=== PATIENT | female | born 1940 | race Caucasian/White ===

== ENCOUNTER → 2017-08-19 09:08 | Outpatient (CLI) | payer MEDICARE, SELFPAY ==
--- NOTE | 2017-08-19 09:14 | US_ITS ---
STUDY: ULTRASOUND BREAST - LEFT REASON FOR EXAM: Female, 77 years old. Pain in the left breast. TECHNIQUE: Axial and longitudinal images of the LEFT breast were performed with a high resolution ultrasound transducer. COMPARISON: Comparison is made with prior mammogram done earlier today. FINDINGS: LEFT Breast: There is a 4 mm x 6 mm x 4 mm cyst at the 3:00 position in the breast at 6 cm from the nipple. US/Breast Limited Unilateral IMPRESSION: 4 mm x 6 mm x 4 mm cyst at the 3:00 position of the breast at 6 cm from the nipple. ASSESSMENT CATEGORY: BIRADS Category 2: Benign. A letter regarding these results will be sent to the patient by the facility within 30 days. Electronically Signed: Boy Barone MD at 11:07 EST Tel [phone], Service support ,
--- NOTE | 2017-08-19 09:14 | HPBI_ITS ---
MAMMOGRAPHY - UNILATERAL DIAGNOSTIC: LEFT BREAST REASON FOR EXAM: Female, 77 years old. Left breast tenderness. PERTINENT HISTORY: Non-contributory. TECHNIQUE: Digital unilateral breast aron (3D mammographic acquisition) in the CC and MLO projections. 2-D mediolateral oblique (MLO) and craniocaudad (CC) views of both breasts were obtained. CAD: Full Field Digital Mammography with Computer Added Detection was performed. COMPARISON: Comparison is made with prior examination dated February 04, 2017 and February 04, 2016. FINDINGS: Breast Composition: There are scattered areas of fibroglandular density. There are no dominant masses or suspicious calcifications. Stable well-defined 5 mm nodule in the mid slightly lateral aspect of the left breast. No other significant abnormalities are identified. There has been no significant change since the prior study. HPBI/DIAG MAMM W/CAD, UNILAT IMPRESSION: Stable unilateral diagnostic mammogram. With the patient's history of left breast tenderness, correlation with ultrasound is recommended. ASSESSMENT CATEGORY: BIRADS Category 0: Incomplete. Need additional imaging evaluation. A letter regarding these results will be sent to the patient by the facility within 30 days. Approximately 10% of breast cancers are not detected by mammography. A normal mammogram should not delay biopsy of a clinically suspicious abnormality. Electronically Signed: Boy Barone MD at 11:11 EST Tel [phone], Service support ,
== END ==
PROVIDERS: Family Provider Internal Medicine; PCP Internal Medicine; Visit Provider Internal Medicine
DX: N64.4 Mastodynia (principal)
CPT/HCPCS: 76642; 77061; 77065; G0279

== ENCOUNTER → 2017-10-14 13:12 | Outpatient (CLI) | payer MEDICARE, SELFPAY ==
--- NOTE | 2017-10-14 13:15 | CT_ITS ---
STUDY: CT BRAIN WITH AND WITHOUT CONTRAST REASON FOR EXAM: Female, 77 years old. Headaches. RADIATION DOSAGE (If Supplied By Facility): CTDIvol = ( 60.81 ) mGy, DLP = ( 1989.96 ) mGycm TECHNIQUE: Transaxial CT imaging of the brain was performed pre and post contrast administration. The examination was performed with intravenous administration of 50ml ml of Isovue 370 contrast material. Individualized dose optimization techniques were used for this CT. COMPARISON: None. FINDINGS: Normal soft tissue structures. Normal calvarium. There is mild cerebral atrophy with widening of the extra-axial spaces and ventricular dilatation. There are areas of decreased attenuation within the white matter tracts of the supratentorial brain, consistent with microvascular disease changes. Normal basal ganglia and thalami. Normal brainstem. Normal cerebellum. There is no intracranial hemorrhage. There are no findings of an acute ischemic infarction. Normal visualized paranasal sinuses. CT/Brain/Head W/WO Contrast IMPRESSION: Mild atrophy and White matter disease. No acute abnormality. Electronically Signed: Cruz Peacock MD at 19:35 EDT , Service support ,
[2017-10-14 13:46] LABS: CREATININE FINGERSTICK 0.7 mg/dL (0.55-1.02); EGFR FINGERSTICK > 60.0000 mL/min (>60)
== END ==
LOC: CT 13:12
PROVIDERS: Family Provider Internal Medicine; PCP Internal Medicine; Visit Provider Internal Medicine
DX: R51 Headache (principal)
CPT/HCPCS: 70470; Q9967

== ENCOUNTER → 2018-02-07 09:32 | Outpatient (CLI) | payer MEDICARE, SELFPAY | PROVIDERS: Family Provider Internal Medicine; PCP Internal Medicine; Visit Provider Internal Medicine | DX: Z12.31 Encounter for screening mammogram for malignant neoplasm of breast (principal) | CPT/HCPCS: 77063; 77067 ==

== ENCOUNTER → 2018-08-23 10:07 | Outpatient (CLI) | payer MEDICARE, SELFPAY ==
[2018-01-28 10:56] VITALS: BMI 35.8
--- NOTE | 2018-08-23 10:11 | RAD_ITS ---
STUDY: X-RAY CHEST REASON FOR EXAM: Female, 78 years old. Cough TECHNIQUE: Frontal and lateral views of the chest COMPARISON: 12/04/2014. FINDINGS: The lungs are clear. There are no pleural effusions. There is no pneumothorax. The heart is normal in size. The visualized osseous structures are within normal limits. RAD/Chest PA and Lateral IMPRESSION: Clear lungs. Electronically Signed: Vic Charles, at 21:36 EST Tel , Service support ,
== END ==
LOC: MTRAD 10:09
PROVIDERS: Family Provider Internal Medicine; PCP Internal Medicine; Referring Provider Internal Medicine; Visit Provider Internal Medicine
DX: R05 Cough (principal)
CPT/HCPCS: 71046

== ENCOUNTER → 2019-02-09 09:12 | Outpatient (CLI) | payer MEDICARE, SELFPAY ==
--- NOTE | 2019-02-09 09:15 | BI_ITS ---
MAMMOGRAPHY - BILATERAL SCREENING 3-D TOMOSYNTHESIS REASON FOR EXAM: Female, 78 years old. Bilateral Screening 3-D tomosynthesis PERTINENT HISTORY: No significant family history. TECHNIQUE: 2-D mammograms and 3-D Tomosynthesis of the breast (s) were performed. CAD was performed. COMPARISON: 02/07/2018, 08/19/17, 02/04/2017 FINDINGS: The breast composition is composed of scattered fibroglandular density. Scattered benign calcifications are seen. No dense spiculated masses or suspicious microcalcifications are identified. No architectural distortion is identified. There is no skin thickening or retraction. There has been no significant change since the prior study. BI/SCREEN MAMM (CAD) W/DREW BILAT IMPRESSION: No mammographic signs of malignancy. Routine yearly mammograms recommended. ASSESSMENT CATEGORY: BIRADS Category 2: Benign. A letter regarding these results will be sent to the patient by the facility within 30 days. FOLLOW UP RECOMMENDATION: Yearly follow up mammogram recommended. (A) Approximately 10% of breast cancers are not detected by mammography. A normal mammogram should not delay biopsy of a clinically suspicious abnormality. Electronically Signed: Rafael Ryder MD at 15:46 EDT Tel [phone], Service support ,
--- NOTE | 2019-02-09 09:17 | BD_ITS ---
STUDY: DUAL ENERGY X-RAY ABSORPTIOMETRY / DXA REASON FOR EXAM: Female, 78 years old. Early menopause. Loss of height. TECHNIQUE: Bone Mineral Density (BMD) measurements of lumbar spine and bilateral hips were obtained. COMPARISON: Comparison is made with prior study dated February 04, 2017. FINDINGS: Lumbar Spine (L1-L4): g/cm2 (1.145) / T-score (-0.5) / Z-score (1.4) Findings are suggestive of normal bone density with a low fracture risk. Left Femur Total: g/cm2 (0.964) / T-score (-0.3) / Z-score (1.7) Left Femoral Neck: g/cm2 (0.929) / T-score (-0.8) / Z-score (1.4) Right Femur Total: g/cm2 (0.989) / T-score (-0.1) / Z-score (1.9) Right Femoral Neck: g/cm2 (0.847) / T-score (-1.4) / Z-score (0.8) The T-Scores on the most recent prior examination were: Lumbar Spine (L1-L4): There has been improvement of bone density since the previous examination. Left Femur Total: which represents a worsening of 2%. Right Femur Total: which represents an improvement of 1.9%. BD/Dexa Bone Density Study IMPRESSION: The patient is considered osteopenic as outlined below according to World Na[employer] Organization (WHO) criteria with a low fracture risk. There has been worsening of bone density since the previous examination. Reference Information: The T-score is the number of standard deviations above or below the standard which is normal for young adults at their peak bone mineral density. The World Health Organization (WHO) interprets the T-scores as follows: Above -1 Normal bone density Between -1 and -2.5 Osteopenia Equal to / or below -2.5 Osteoporosis As a practical clinical guideline, osteopenia may be graded as follows: Mild -1 through -1.5 Moderate -1.6 through -2.0 Severe -2.1 through -2.4 The Z-score is the number of standard deviations above or below age-matched controls. A Z-score of less than -1.5 would be considered abnormal. References: 1. NIH Osteoporosis and Related Bone Diseases http://www.osteo.org 2. International Society for Clinical Densitometry http://www.iscd.org 3. National Osteoporosis Foundation http://www.nof.org Electronically Signed: Boy Barone, at 11:00 EDT , Service support ,
== END ==
PROVIDERS: Family Provider Internal Medicine; PCP Internal Medicine; Referring Provider Internal Medicine; Visit Provider Internal Medicine
DX: Z12.31 Encounter for screening mammogram for malignant neoplasm of breast (principal); Z78.0 Asymptomatic menopausal state; M85.80 Other specified disorders of bone density and structure, unspecified site
CPT/HCPCS: 77063; 77067; 77080

== ENCOUNTER → 2019-03-13 10:51 | Outpatient (CLI) | payer MEDICARE, SELFPAY ==
[2019-02-17 12:02] VITALS: BMI 35.8
--- NOTE | 2019-03-13 17:59 | STRESSREP ---
Stress Test Report Exercise stress test. 78-year-old lady with a history of coronary artery disease. Stress protocol: Resting EKG demonstrates normal sinus rhythm with a rate of 71 bpm normal intervals are noted resting blood pressure 138/82 mmHg. The patient exercised according to regular Eyal protocol for total duration of 4 minutes completing 1 minute into stage II of the Eyal protocol. The maximum heart rate attained was 193 bpm which was 137% maximum predicted heart rate the maximum workload was 5.8 metabolic equivalents. The patient maintained sinus rhythm with occasional premature ventricular complex. There was a short period during recovery of atrial fibrillation with a rate of approximately 141 bpm. No clinical angina was noted. The resting blood pressures 138/82 mmHg with a peak of 154/82 mmHg. Conclusion: Exercise stress test with no evidence of ischemia or angina noted at a low to moderate workload. Paroxysmal atrial fibrillation noted during recovery.
== END ==
LOC: CVS 10:52
PROVIDERS: Family Provider Internal Medicine; PCP Internal Medicine; Referring Provider Internal Medicine Cardiovascular Disease; Visit Provider Internal Medicine Cardiovascular Disease
DX: I25.10 Atherosclerotic heart disease of native coronary artery without angina pectoris (principal); I10 Essential (primary) hypertension; E78.5 Hyperlipidemia, unspecified; R00.1 Bradycardia, unspecified
CPT/HCPCS: 93017

== ENCOUNTER → 2019-04-28 09:31 | Outpatient (CLI) | payer MEDICARE, SELFPAY ==
[2019-02-17 12:02] VITALS: BMI 35.8
--- NOTE | 2019-04-28 09:34 | RAD_ITS ---
STUDY: X-RAY CHEST REASON FOR EXAM: Female, 78 years old. Shortness of breath/dyspnea for one week. TECHNIQUE: PA and lateral views of the chest. COMPARISON: Comparison is made with prior study August 23, 2018. FINDINGS: Stable elevation of the right hemidiaphragm. Calcified old granulomatous disease. Stable mild linear scarring in the lingular segment of the left upper lobe. There is no demonstrated pleural abnormality. Normal size heart. Normal mediastinum and tayler. Normal visualized pulmonary arteries. There is atherosclerotic calcification of the aortic arch with tortuosity. There are diffuse degenerative changes of the visualized thoracic spine. Normal visualized ribs, clavicles, and shoulders. There is no demonstrated abnormality of the visualized soft tissue structures of the upper abdomen. RAD/Chest PA and Lateral IMPRESSION: No acute abnormality is seen. Electronically Signed: Boy Barone, at 10:15 EST , Service support ,
== END ==
LOC: HPRAD 09:31
PROVIDERS: Family Provider Internal Medicine; PCP Internal Medicine; Referring Provider Internal Medicine; Visit Provider Internal Medicine
DX: J18.9 Pneumonia, unspecified organism (principal)
CPT/HCPCS: 71046

== ENCOUNTER → 2019-06-27 13:16 | Outpatient (CLI) | payer MEDICARE, SELFPAY ==
[2019-02-17 12:02] VITALS: BMI 35.8
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
[2019-06-27 13:38] LABS: Basophil# 0.02 X10^3/uL; Basophil% 0.3 % (0-1); Eosinophil# 0.09 X10^3/uL; Eosinophils% 1.5 % (0-5); Hematocrit 42.2 % (37-47); Hemoglobin 13.5 g/dL (12.0-15.0); Lymphocyte % 37.2 % (19-41); Mean Corpuscular Hgb 27.9 pg (27.0-32.0); Mean Corpuscular Volume 87.2 fL (81-99); Mean Platelet Vol. 7.6 fl (6.2-12.0); Monocyte# 0.64 X10^3/uL; Monocyte% 10.8 % (0-10); NRBC Flagged by Analyzer 0 % (0-5); Neutrophil # 2.96 X10^3/uL (2.7-7.7); Platelet Count 220 K/mm3 (150-450); RBC Distribution Width CV 13.1 % (11.6-14.6); RBC Distribution Width SD 41.3 fl (35.1-43.9); Red Blood Count 4.84 M/mm3 (4.2-5.4); White Blood Count 5.9 K/mm3 (4.4-11.0)
[2019-06-27 13:53] LABS: AST(SGOT) 19 U/L (15-37); Alanine Aminotransfer ALT/SGPT 27 U/L (13-56); Albumin, Serum 3.7 g/dL (3.2-5.0); Alkaline Phosphatase 129 U/L (45-117); Anion Gap 3 (5-15); BUN 19 mg/dL (7-18); Calcium,Total 9.2 mg/dL (8.5-10.1); Chloride 110 mmol/L (98-107); Creatinine, Serum 0.76 mg/dL (0.55-1.02); EST Glomerular Filtration Rate 78 mL/min (>60); Est Glom Filt Rate - Afr Amer 94 mL/min (>60); Globulin 3.6 g/dL (2.2-4.2); Glucose 101 mg/dL (74-106); Potassium 4.4 mmol/L (3.5-5.1); Protein, Total 7.3 g/dL (6.4-8.2); Sodium Level 141 mmol/L (136-145)
== END ==
PROVIDERS: Family Provider Internal Medicine; PCP Internal Medicine; Referring Provider Internal Medicine; Visit Provider Internal Medicine
DX: R10.9 Unspecified abdominal pain (principal)
CPT/HCPCS: 36415; 74177; 80053; 85025; Q9967

== ENCOUNTER → 2019-07-13 10:22 | Outpatient (CLI) | payer MEDICARE, SELFPAY ==
[2019-02-17 12:02] VITALS: BMI 35.8
--- NOTE | 2019-07-13 10:30 | RAD_ITS ---
STUDY: X-RAY - ABDOMEN/PELVIS REASON FOR EXAM: Female, 79 years old. Kidney Stones pain X 3-4 weeks. TECHNIQUE: Two AP supine views of the abdomen and pelvis. COMPARISON: None. FINDINGS: Normal visualized lung bases. There is an unremarkable bowel gas pattern. There is no demonstrated free abdominal air. The visualized liver, spleen and kidneys are grossly normal in size and morphology. Normal soft tissue structures. There are diffuse degenerative changes of the visualized lumbar spine. RAD/Abdomen Single View IMPRESSION: No urinary tract calculi are visible. Electronically Signed: Phill Smith MD at 0:42 EST Tel , Service support ,
== END ==
LOC: RAD.FUTURE 10:23
PROVIDERS: PCP Internal Medicine; Referring Provider Urology; Visit Provider Urology
DX: N20.0 Calculus of kidney (principal)
CPT/HCPCS: 74018

== ENCOUNTER → 2019-07-13 12:12 | Outpatient (CLI) | payer MEDICARE, SELFPAY ==
[2019-02-17 12:02] VITALS: BMI 35.8
--- NOTE | 2019-07-13 12:15 | CT_ITS ---
STUDY: CT ABDOMEN AND PELVIS WITHOUT CONTRAST REASON FOR EXAM: Female, 79 years old. URETERAL CALCULUS LEFT. Pre-op RADIATION DOSAGE (If Supplied By Facility): CTDIvol = ( 17.16 ) mGy, DLP = ( 814.43 ) mGycm TECHNIQUE: Transaxial images were obtained from the dome of the diaphragm to the symphysis pubis without oral contrast, and without intravenous contrast. Sagittal and coronal images were reconstructed. Individualized dose optimization techniques were used for this CT. COMPARISON: 06/27/2019 FINDINGS: The visualized lung bases are unremarkable. The visualized portions of the heart are within normal limits. Normal liver. The gallbladder is contracted. Normal spleen. Normal pancreas. Normal bilateral adrenal glands. 2 small nonobstructing stones in the right kidney. No hydronephrosis, ureteral stone, or ureteral dilatation. Normal left kidney. Normal visualized stomach. Diverticulum of the second portion the duodenum. There are multiple colonic diverticula consistent with diverticulosis. There is non-visualization of the appendix. Normal abdominal aorta. Normal inferior vena cava. Normal retroperitoneum. Normal urinary bladder. 12 cm hernia in the midline of the anterior abdominal wall in the pelvis containing multiple loops of small bowel but without bowel dilatation to suggest bowel obstruction. Normal osseous structures. CT/Abdomen/Pelvis without Cont IMPRESSION: 1. 2 small nonobstructing right renal stones. 2. Sigmoid diverticulosis without diverticulitis. 3. Large hernia in the midline in the intra-abdominal wall the pelvis containing multiple loops of small bowel but without bowel obstruction. Electronically Signed: Chalo Palacio MD at 13:30 EST Tel , Service support ,
== END ==
LOC: CT 12:14
PROVIDERS: PCP Internal Medicine; Referring Provider Urology; Visit Provider Urology
DX: N20.1 Calculus of ureter (principal); N20.0 Calculus of kidney
CPT/HCPCS: 74018; 74176

== ENCOUNTER → 2019-08-01 10:43 | Outpatient (CLI) | payer MEDICARE, SELFPAY ==
[2019-02-17 12:02] VITALS: BMI 35.8
--- NOTE | 2019-08-01 10:50 | RAD_ITS ---
HISTORY: HISTORY: pain 2-3 mcp joint area XR Hand Min 3 Views COMPARISON: None FINDINGS: # of images incl. paperwork: 3 3 views of the right hand. Interphalangeal joint arthritis is present. First carpometacarpal joint arthritis is present. Hook osteophytes are beginning to form on the lateral aspect of the distal ends of the second and third metatarsals. No acute fractures. Some enthesophytes are also present at the proximal interphalangeal joints, ulnar side. RAD/Hand Min 3 Views IMPRESSION: Osteoarthritis. at 0554 Reported and signed by: Swapnil Onofre MD Electronically Signed: Swapnil Onofre MD at 5:53 EST Tel , Service support ,
== END ==
PROVIDERS: PCP Internal Medicine; Referring Provider Internal Medicine; Visit Provider Internal Medicine
DX: M79.641 Pain in right hand (principal)
CPT/HCPCS: 73130

== ENCOUNTER 2019-08-16 15:06 | Observation (INO) | payer MEDICARE, SELFPAY ==
--- NOTE | 2019-08-09 01:56 | HP_ITS ---
Intake Vital Signs 08/09/19 BMI 35.8 08/09/19 Height 5 ft 2 in 08/09/19 Weight: 194 lb 08/09/19 BMI 35.4 08/09/19 BP 119/76 08/09/19 Blood Pressure Location Rt brachial 08/09/19 Position Sitting 08/09/19 Respiration 16 08/09/19 Pulse 73 08/09/19 Pulse Source Monitor 08/09/19 Temp 98.5 F 08/09/19 Temp Source Oral 08/09/19 Pulse Oximetry (%) 97 08/09/19 Oxygen Delivery Method room air Intake Visit Reasons: VENTRAL HERNIA Chief Complaint: left breast lump--cyst Chief Strategy Officer Required: No Is patient in pain?: No Allergies Sulfa (Sulfonamide Antibiotics) Allergy (Mild, Verified 08/09/19 13:51) Rash Medications Aspirin E.C. [Ecotrin] 81 mg PO DAILY 06/13/14 [History Confirmed 08/09/19] cholecalciferol (vitamin D3) 1,250 mcg (50,000 unit) capsule 50,000 unit PO QWEEK 08/26/17 [History Confirmed 08/09/19] mecobalamin (vitamin B12) 5,000 mcg disintegrating tablet 100 mcg PO QDAY ea 08/26/17 [History Confirmed 08/09/19] nitroglycerin 0.4 mg sublingual tablet 0.4 mg SUBLINGUAL Q5-15M PRN #25 tab 07/28/18 [Rx Confirmed 08/09/19] isosorbide mononitrate 60 mg tablet,extended release 24 hr 60 mg PO QDAY #90 tab 08/03/19 [Rx Confirmed 08/09/19] metoprolol tartrate 25 mg tablet 12.5 mg PO BID #90 tab 08/03/19 [Rx Confirmed 08/09/19] simvastatin 40 mg tablet 40 mg PO QHS #90 tab 08/03/19 [Rx Confirmed 08/09/19] amitriptyline 10 mg tablet 10 mg PO DAILY tab 08/09/19 [History Confirmed 08/09/19] triamcinolone acetonide 0.1 % dental paste 1 applic DENTAL DAILY PRN g 08/09/19 [History Confirmed 08/09/19] [facility] Medical History Osteopenia (Chronic) Chronic back pain (Chronic) Rosacea (Chronic) Psoriasis (Chronic) Eczema (Chronic) Raynauds disease (Chronic) Obesity (Chronic) History of left heart catheterization (Acute 07/31/04) Essential (primary) hypertension (Chronic) Hyperlipidemia (Chronic) Atherosclerosis of [place] coronary artery of [place] heart without angina pectoris (Chronic) Bradycardia (Inactive) Surgical History S/P tubal ligation (Resolved) H/O umbilical hernia repair (Resolved) S/P appendectomy (Resolved) S/P dilation and curettage (Resolved) Status post left breast lumpectomy (Resolved) S/P hysterectomy (Resolved) S/P rotator cuff repair (Resolved) Family History Sister Diabetes Mother Diabetes Hypertension CVA (cerebral vascular accident) Father CAD (coronary artery disease) Heart disease Myocardial infarction Social History (Updated 08/09/19 @ 13:56 by Scotty Gabriel MD) Smoking Status: Never smoker second hand exposure: No alcohol intake: never substance use type: does not use caffeine: Yes what type of physical activity do you participate in: none frequency: does not exercise HPI HPI HPI: TIFFANY GAVIRIA, is a 79 F who presents to the office today for HPI HPI Surgical H&P: Yes HPI: TIFFANY GAVIRIA, is a 79 F who presents to the office today for Evaluation of an incisional hernia. Patient was seen by her primary care physician was having some lower abdominal discomfort a CAT scan was obtained which showed a large incisional hernia in her lower abdomen.She has not been having any problems with bowel or bladder habits at this time. ROS General General: No weight change, appetite, fatigue, colon cancer, breast cancer or weakness HEENT HEENT: No difficulty swallowing, eye injury, eye surgery, swollen glands or hoarseness Endo Endocrine: Yes thyroid disease, diabetes mellitus, thyroid cancer, Hair loss, heat intolerance and cold intolerance Skin Skin: No rash or changing moles Musc Musculoskeletal: Yes arthritis; no back problems, rheumatoid arthritis, gout or joint pain Cardio Cardiovascular: Yes murmur; no pacemaker, heart disease, atrial fibrillation, high blood pressure, heart attack, heart stent, palpitations, shortness of breat with exertion or chest pain Psych Psychiatric: No depression, anxiety or hearing voices Resp Respiratory: No shortness of breath, No sleep apnea, No cough, No COPD, No asthma, No emphysema, No wheezing Gastro Gastrointestinal: No abdominal pain, No nausea or vomiting, No diarrhea, No constipation, No blood in stool, No acid reflux, No hemorrhoids, No ulcers, No gallbladder problem, No black,tarry stools Tomi Hematologic: No blood thinners, No blood disorders, No bleeding, No anemia, No blood clots Neuro Neurologic: No system reviewed and no additional complaints, except as docu, No as per HPI, No abnormal walking, No abnormal hearing, No abnormal movements, No abnormal speech, No behavioral changes, No burning sensations, No confusion, No seizure-like activity, No unsteadiness, No dizziness, No localized weakness, No frequent falls, No headache(s), No lack of coordination, No loss of vision, No memory loss, No numbness, No other visual disturbances, No radiating pain, No restless legs, No sensory deficit, No fainting, No tingling, No tremor(s), No weakness, No other Exam Const General: no acute distress, well developed, well hydrated Orientation: oriented to person, oriented to place, oriented to time [facility] Head: normocephalic, atraumatic Ears: external ears normal Mouth: moist mucous membranes Eyes Sclera: sclerae normal Pupils: normal by confrontation Neck Neck: no lymphadenopathy noted Neck mass: No Thyroid: thyroid normal, symmetrical Chest Chest palpation & inspection: normal inspection of the chest Resp Effort & Inspection: normal respiratory effort Auscultation: clear to auscultation bilaterally Percussion: percussion normal Cardio Rate: regular rate Rhythm: regular rhythm Heart Sounds: murmur GI Palpation: soft, no hepatosplenomegaly, no masses, tender Rectal Exam: other Other: Large lower incisional hernias identified I am not sure I can completely reduce this hernia. Rectal exam deferred. Extrem General: normal to inspection, no clubbing, cyanosis or edema Assessment & Plan Problems 1. Incarcerated incisional hernia K43.0 Plan My plan is to perform In incarcerated incisional hernia repair with mesh. The planned surgical procedure was discussed extensively with the patient. The risks, benefits, anticipated outcomes and possible complication were mentioned. The patient understands that all hernia repair surgery has a chance of recurrence and/or chronic post-operative pain. My staff has also explained the procedure in understandable terms and the patient was given the option to take printed material concerning the planned procedure. The patient had the opportunity to ask questions concerning the planned procedure. The patient freely consents to the planned procedure. Coding Level of Care Code Off vis,est,level 3 Diagnoses Incarcerated incisional hernia K43.0 08/09/19 1356 <Electronically signed by Scotty harris MD> Date _ Scotty Gabriel MD I have re-examined the patient. There are no clinical changes since date of exam.
[2019-08-09 13:56] VITALS: BMI 35.8
[2019-08-16] VITALS (14 sets, daily range): BP systolic 91–128; BP diastolic 48–79; PULSE 55–67; RESP 15–16; TEMP 36.4–37.4; O2SAT 92–98; BMI 35.5
[2019-08-16] MEDS: Lactated Ringers 1,000 ML 100 ML IV ×2 (06:01→09:15)
[2019-08-16] MEDS: Cefazolin 2 GM in 0.9% Normal Saline 100 ML IV (07:20)
--- NOTE | 2019-08-16 07:35 | PCM.OPRPT ---
Problem List (1) Incarcerated incisional hernia Status: Acute Report of Operation Date of Procedure: 08/16/19 Pre-Operative Diagnosis: Incarcerated incisional hernia Post-Operative Diagnosis: Same Surgery/Procedure Performed:: Repair of incarcerated incisional hernia with mesh Type of Anesthesia:: General Anesthesiologist: Javy Otto Specimen's removed: none Drains: 15 round Manuel-Anderson Estimated Blood Loss (mL): 1 L of LR Fluids Replaced: < 25 cc Description of Procedure: Patient was brought into the operating room. Placed in the supine position. Under excellent general trach elevation Esposito catheter was placed. Abdomen was sterilely prepped and draped in usual fashion. I opened up her previous lower midline incision. I dissected down and quickly identified the incarcerated ventral hernia with her being paralyzed this reduced rather easily. I dissected out this hernia sac from the surrounding tissue and came down to the fascial edges. I grabbed the fascial edges with a [place] and then did a preperitoneal dissection around this large hernia taking this all the way down to the pubic tubercle extending it laterally both left and right and going up superiorly. The patient had 2 incisional hernias the largest one was in the lower incision and just superior to that was another incisional hernia. Identified this dissected around it freely I opened the bridge of tissue connecting the 2. In similar fashion created a preperitoneal space using electrocautery and Sebewaing's to lift up the fascia. Once I had a good preperitoneal space I fashioned a intrarenal ST hernia patch reference #[id number] lot number [id number]. Set quite nicely in the preperitoneal space. I used a pro-tacker intact with 3 tacks in the upper and 3 tacks in the lower distal it would continue to lie flat. I then circumferentially close this defect using #1 Nurolon's connecting the fascia to the mesh itself. These were all [id number]'s. Once this was completed I placed a 15 round Manuel-Anderson drain into the large subcutaneous space that was left behind secondary to the hernia sac. It was sutured to the skin with a 3-0 nylon. I injected Exparel circumferentially into the fascia. The subcu was then brought together with 2-0 Vicryl's interrupted. Deep dermals of 3-0 Vicryl interrupted. And the skin was closed with subcuticular stitches of 4-0 Monocryl. Steri-Strips were applied sterile dressings were applied and the patient tolerated the procedure well. - Admit VTE Documentation VTE Present on Admission: No VTE Mechan Device Prophylaxis: SCD's VTE Pharm Prophylaxis ordered?: No Reason prophylaxis not ordered:: Treatment Not Indicated
[2019-08-16] MEDS: 0.9% Normal Saline (Pres. free 10 ML Vial (08:24)
[2019-08-16] MEDS: BUPIVACAINE LIPOSOME/PF 20 ML VIAL OPERA.SITE (08:24)
--- NOTE | 2019-08-16 09:25 | SUR.PHASEI ---
ARRIVES TO PACU WITH CHANDLER CATHETER WHICH WAS INSERTED IN O.R. BY MARITZA VILLAFANA RN.
[2019-08-16] MEDS: oxyCODONE 5 MG Tablet PO ×2 (12:01→15:51)
[2019-08-16] MEDS: Cefazolin 1 GM/50 ML BAG IV ×3 (12:04→23:14)
--- NOTE | 2019-08-16 13:56 | NURSING ---
GARRY drain emptied for 35mls of sanguinous fluid.
[2019-08-16] MEDS: Lactated Ringers 1,000 ML 75 ML IV (17:22)
[2019-08-16] MEDS: Atorvastatin Calcium 20 MG Tablet PO (21:52)
[2019-08-16] MEDS: Metoprolol Tartrate 25 MG Tablet PO (21:52)
[2019-08-17] VITALS (7 sets, daily range): BP systolic 107–124; BP diastolic 56–63; PULSE 70–86; RESP 16–20; TEMP 36.8–37.1; O2SAT 86–94
[2019-08-17] MEDS: Cefazolin 1 GM/50 ML BAG IV ×3 (05:10→18:35)
[2019-08-17] MEDS: Lactated Ringers 1,000 ML 75 ML IV ×2 (06:24→20:04)
[2019-08-17] MEDS: Isosorbide Mononitrate 60 MG Tablet PO (12:02)
--- NOTE | 2019-08-17 13:54 | PN.SURG_ITS ---
Patient Problems: Active and Suspected Problems (Last Reviewed 08/09/19 @ 13:[address] Scotty Gabriel MD) Incarcerated incisional hernia (Acute) Subjective: Patient evaluated resting comfortably in the chair. She notes incisional pain with movement. She denies flatus. She denies nausea, vomiting. She is urinating well since the Esposito has been removed. - Physical Exam Vitals/I&O's: Vital Signs Temp Pulse Resp BP Pulse Ox 98.7 F 77 16 107/56 L 92 08/17/19 13:30 08/17/19 13:30 08/17/19 13:30 08/17/19 13:30 08/17/19 13:30 Oxygen Flow Rate (L/min) 2 Oxygen Delivery Method Room Air Weight: 194 lb 3.636 oz Body Mass Index (BMI) 35.5 Intake and Output for Last 24 Hours 08/15/19 08/16/19 08/17/19 23:59 23:59 23:59 Intake Total 2640.00 / 2640.00 1620.0 / 1620.0 Output Total 805 / 805 970 / 970 Balance 1835.00 / 1835.00 650.0 / 650.0 General: Alert, Oriented x3, Cooperative Abdomen: Hypoactive Bowel Sounds, Distended, Obese, - - Incision c/d/i. No erythema or infection noted. GARRY drain was removed rntirely and dressing was applied. Current Medications Atorvastatin Calcium (Lipitor) 20 mg PO QHS [facility] Last Admin: 08/16/19 21:52 Dose: 20 mg Documented by: Hydromorphone HCl (Dilaudid Inj) 0.5 - 1 mg IV Q2H PRN PRN PRN Reason: Pain Score 1-10/10 Hydromorphone HCl (Dilaudid Inj) 0.5 - 1 mg IV Q2H PRN PRN PRN Reason: Pain Score 1-10/10 Lactated Ringer's () 1,000 mls @ 75 mls/hr IV .[id number] [facility] Last Infusion: 08/17/19 13:10 Dose: 0 mls/hr Documented by: Cefazolin Sodium () 1 gm in 50 mls @ 100 mls/hr IV Q6 [facility] Last Admin: 08/17/19 13:10 Dose: 100 mls/hr Documented by: Isosorbide Mononitrate (Imdur) 60 mg PO DAILY [facility] Last Admin: 08/17/19 12:02 Dose: 60 mg Documented by: Ketorolac Tromethamine (Toradol (Bkc)) 15 mg IV Q6H PRN PRN PRN Reason: Pain Score 1-10/10 Metoprolol Tartrate (Lopressor (Beta Mane)) 25 mg PO DAILY@2200 [facility] Last Admin: 08/16/19 21:52 Dose: 25 mg Documented by: Nitroglycerin (Nitrostat) 0.4 mg SUBLINGUAL .Q5-15M PRN PRN Reason: chest pain Ondansetron HCl (Zofran) 4 mg IV Q8H PRN PRN PRN Reason: NAUSEA Oxycodone HCl (Oxyir) 5 - 10 mg PO Q4H PRN PRN PRN Reason: Pain Score 1-10/10 Last Admin: 08/16/19 15:51 Dose: 5 mg Documented by: Sodium Chloride () 10 - 40 ml IV UD PRN PRN Reason: SALINE FLUSH Medical Necessity - Tobacco Use Smoking Status: Never smoker Tobacco Use: Non-smoker Assessment/Plan All Active Problems (Last Reviewed 08/09/19 @ 13:[address] Scotty Gabriel MD) Incarcerated incisional hernia (Acute) S/P tubal ligation (Resolved) H/O umbilical hernia repair (Resolved) S/P appendectomy (Resolved) S/P dilation and curettage (Resolved) Status post left breast lumpectomy (Resolved) S/P hysterectomy (Resolved) S/P rotator cuff repair (Resolved) History of left heart catheterization (Acute 07/31/04) I am following this patient in conjunction with Dr. Gabriel. S/p incarcerated ventral incisional hernia GARRY removed today Await GI function Will continue to monitor this patient Probable discharge tomorrow. Code Visit Inpatient E&M: 46468 Subs Hosp L1 - Post-op
--- NOTE | 2019-08-17 14:19 | DS.PCM_ITS ---
Discharge Date and Diagnosis Date of Admission: 08/16/19 Date of Discharge: 08/18/19 - Primary Discharge Diagnosis Active and Suspected Problems (Last Reviewed 08/09/19 @ 13:[address] Scotty Gabriel MD) Incarcerated incisional hernia (Acute) - Secondary Discharge Diagnosis Chronic Problems (Last Reviewed 08/09/19 @ 13:[address] 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 Dr. Gabriel performed a Repair of incarcerated incisional hernia with mesh on 08/16/2019. Patient tolerated the procedure well. Patient had a maciel placed during surgery which was removed POD #1. She also had a drain which was removed on POD#1. Patient had an uneventful hospitalization. Upon discharge, patient's pain was well controlled. Denies nausea, vomiting. Urinating well. Patient will need to be discharged to home on home oxygen. She will follow-up with her PCP in 1 week to discontinue the oxygen. - Physical Exam Vitals/I&O's: Vital Signs Temp Pulse Resp BP Pulse Ox 98.7 F 77 16 107/56 L 92 08/17/19 13:30 08/17/19 13:30 08/17/19 13:30 08/17/19 13:30 08/17/19 13:30 Oxygen Flow Rate (L/min) 2 Oxygen Delivery Method Room Air Weight: 194 lb 3.636 oz Body Mass Index (BMI) 35.5 Intake and Output for Last 24 Hours 08/15/19 08/16/19 08/17/19 23:59 23:59 23:59 Intake Total 2640.00 / 2640.00 1670.0 / 1670.0 Output Total 805 / 805 970 / 970 Balance 1835.00 / 1835.00 700.0 / 700.0 General: Alert, Oriented x3, Cooperative Abdomen: Hypoactive Bowel Sounds, Obese, Tender, - - Incision c/d/i. No erythema or infection noted Current Medications Atorvastatin Calcium (Lipitor) 20 mg PO QHS [facility] Last Admin: 08/16/19 21:52 Dose: 20 mg Documented by: Hydromorphone HCl (Dilaudid Inj) 0.5 - 1 mg IV Q2H PRN PRN PRN Reason: Pain Score 1-10/10 Hydromorphone HCl (Dilaudid Inj) 0.5 - 1 mg IV Q2H PRN PRN PRN Reason: Pain Score 1-10/10 Lactated Ringer's () 1,000 mls @ 75 mls/hr IV .[id number] [facility] Last Infusion: 08/17/19 13:40 Dose: 75 mls/hr Documented by: Cefazolin Sodium () 1 gm in 50 mls @ 100 mls/hr IV Q6 [facility] Last Infusion: 08/17/19 13:40 Dose: Infused Documented by: Isosorbide Mononitrate (Imdur) 60 mg PO DAILY [facility] Last Admin: 08/17/19 12:02 Dose: 60 mg Documented by: Ketorolac Tromethamine (Toradol (Bkc)) 15 mg IV Q6H PRN PRN PRN Reason: Pain Score 1-10/10 Metoprolol Tartrate (Lopressor (Beta Mane)) 25 mg PO DAILY@2200 [facility] Last Admin: 08/16/19 21:52 Dose: 25 mg Documented by: Nitroglycerin (Nitrostat) 0.4 mg SUBLINGUAL .Q5-15M PRN PRN Reason: chest pain Ondansetron HCl (Zofran) 4 mg IV Q8H PRN PRN PRN Reason: NAUSEA Oxycodone HCl (Oxyir) 5 - 10 mg PO Q4H PRN PRN PRN Reason: Pain Score 1-10/10 Last Admin: 08/16/19 15:51 Dose: 5 mg Documented by: Sodium Chloride () 10 - 40 ml IV UD PRN PRN Reason: SALINE FLUSH Home Medications: Medications to take at Discharge Aspirin E.C. [Ecotrin] 81 mg PO DAILY 06/13/14 nitroglycerin 0.4 mg sublingual tablet 0.4 mg SUBLINGUAL Q5-15M PRN #25 tab 07/28/18 isosorbide mononitrate 60 mg tablet,extended release 24 hr 60 mg PO QDAY #90 tab 08/03/19 simvastatin 40 mg tablet 40 mg PO QHS #90 tab 08/03/19 Cholecalciferol (Vitamin D3) [Vitamin D3] 5,000 unit PO DAILY 08/14/19 L.acidoph,Paracasei, B.lactis [Probiotic] 1 ea PO DAILY 08/14/19 Metoprolol Tartrate 25 mg PO DAILY 08/14/19 Oxycodone [Oxyir] 5 mg PO Q6H PRN PRN 7 Days #20 tab 08/17/19 Following Prescrptions Were Given to Patient: Oxycodone [Oxyir] 5 mg PO Q6H PRN PRN 7 Days #20 tab PRN Reason: Pain Score 1-10/10 Transmission Status: Received by [facility] Primary Care Physician: Zoey De La Fuente DO [Primary Care Provider] - Disposition: Home Minutes spent on discharge:: 20 Patient Condition:: Stable Medical Necessity - Tobacco Use Smoking Status: Never smoker Tobacco Use: Non-smoker Meaningful Use Info Meaningful Use Diagnoses (Choose all that apply): None applicable Code Visit Inpatient E&M: 96263 Disch Hosp - No charge
--- NOTE | 2019-08-17 14:26 | PCM.DC.HER ---
Discharge Diet: Light diet - advance as tolerated Discharge Activity: Return to Normal Activity, May Not Drive - for 3 days or while taking narcotic pain meds., May Shower - with the bandage in place 1-2 days after surgery. Lifting Restrictions: 20 pounds for 8 weeks. Additional Activity Instructions:: Climbing stairs is fine, walking is encouraged. Sitting in bed may be uncomfortable. Sitting up using your lateral muscles (sitting up sideways) is usually more comfortable. Do not drive, work heavy equipment of sign legal documents for 24 hours. Pain medications may cause nausea, you should typically eat light foods as you take your pain medications. Pain medications may also cause constipation. If you have difficulty with this, you may take Miralax or Milk of magnesia. Call your doctor if your incision/area has: Continuous Slow Oozing, Sudden Increased Bleeding, Increased Pain/ Swelling, Increased Redness, Foul Smelling Discharge Call your doctor if you observe: Fever of 101 or Higher Suture Line Care: Avoid Pulling/Pushing, Avoid Pinching/Bending Change Dressing in (Days):: 3 - Leave steri-strips for 1 week. May protect with a guaze bandaid. Cleanse incision/area with: Soap & Water Allergies/Adverse Reactions: Allergies Sulfa (Sulfonamide Antibiotics) Allergy (Mild, Verified 08/16/19 05:41) Rash Medications to take at Discharge Aspirin E.C. [Ecotrin] 81 mg PO DAILY 06/13/14 nitroglycerin 0.4 mg sublingual tablet 0.4 mg SUBLINGUAL Q5-15M PRN #25 tab 07/28/18 isosorbide mononitrate 60 mg tablet,extended release 24 hr 60 mg PO QDAY #90 tab 08/03/19 simvastatin 40 mg tablet 40 mg PO QHS #90 tab 08/03/19 Cholecalciferol (Vitamin D3) [Vitamin D3] 5,000 unit PO DAILY 08/14/19 L.acidoph,Paracasei, B.lactis [Probiotic] 1 ea PO DAILY 08/14/19 Metoprolol Tartrate 25 mg PO DAILY 08/14/19 Oxycodone [Oxyir] 5 mg PO Q6H PRN PRN 7 Days #20 tablet 08/17/19 The following prescriptions were given: Oxycodone [Oxyir] 5 mg PO Q6H PRN PRN 7 Days #20 tablet PRN Reason: Pain Score 1-03/30 Transmission Status: Sent to [facility] Primary Care Physician: Zoey De La Fuente DO [Primary Care Provider] - Test Results: Test results from this visit will be discussed in further detail at your follow-up appointment, if applicable. Please Follow Up With: Ilsa Chavez PA-C - [phone] When: 10 days Proposed Discharge Date: 08/18/19
--- NOTE | 2019-08-17 15:18 | CASEMGMT ---
Intro role of CM to patient and CHRISTIAN form explained re: Observation status for treatment of hernia repair. Explained hospitalization will be paid per? insurance policy for Outpatient billing?and condition will continue to be evaluated for Inpt necessity. Also let pt know that [facility] sends paper in the billing packet with their phone number if questions arise. Discussed Pharmacy section of CHRISTIAN form and self administered medication guideline.? Pt verbalizes understanding and does not have further questions. Form signed and placed in chart, copy to pt. BRANDO VELASQUEZ BSN CM
[2019-08-17] MEDS: Atorvastatin Calcium 20 MG Tablet PO (21:41)
[2019-08-17] MEDS: Metoprolol Tartrate 25 MG Tablet PO (21:41)
[2019-08-18] VITALS (10 sets, daily range): BP systolic 111–146; BP diastolic 46–78; PULSE 68–79; RESP 16–18; TEMP 36.2–37; O2SAT 88–95
[2019-08-18] MEDS: Cefazolin 1 GM/50 ML BAG IV ×3 (00:06→11:32)
--- NOTE | 2019-08-18 07:40 | NURSING ---
NEXT OF KIN EWELINA NOTIFIED THAT PT ROOM HAS CHANGED
[2019-08-18] MEDS: Isosorbide Mononitrate 60 MG Tablet PO (10:17)
[2019-08-18] MEDS: Lactated Ringers 1,000 ML 75 ML IV (10:18)
== END 2019-08-18 14:05 | disposition home or self-care (01) ==
LOC: PCU 19:27 → MS2 08-17 08:15 → PCU 08-17 08:15 → SDC 08-17 08:15 → PCU 08-17 14:46 → MS2 08-17 22:52
PROVIDERS: Admitting Provider Surgery; PCP Internal Medicine; Referring Provider Surgery; Visit Provider Surgery
PROC: (CPT 49561; principal; 2019-08-16 07:15)
DX: K43.0 Incisional hernia with obstruction, without gangrene (principal); I10 Essential (primary) hypertension; E66.9 Obesity, unspecified; L71.9 Rosacea, unspecified; I73.00 Raynaud's syndrome without gangrene; Z68.35 Body mass index [BMI] 35.0-35.9, adult; L40.9 Psoriasis, unspecified; L30.9 Dermatitis, unspecified; I25.10 Atherosclerotic heart disease of native coronary artery without angina pectoris; E78.5 Hyperlipidemia, unspecified; Z79.899 Other long term (current) drug therapy; Z79.82 Long term (current) use of aspirin
CPT/HCPCS: 00832; 49561; 49568; 96361; 96365; 96366; 97802; 99218; J7120; C1781; G0378; G0379; J2405; J3490

== ENCOUNTER → 2020-02-07 10:53 | Outpatient (CLI) | payer MEDICARE, SELFPAY ==
[2019-08-16 11:31] VITALS: BMI 35.5
--- NOTE | 2020-02-07 11:03 | RAD_ITS ---
STUDY: X-RAY - RIGHT KNEE REASON FOR EXAM: Female, 79 years old. FALL X 2 MONTHS. PAIN LATERAL TECHNIQUE: 5 view(s) of the knee. COMPARISON: None. FINDINGS: Normal visualized distal femur. Normal visualized proximal tibia and fibula. Normal proximal tibiofibular articulation. There is moderate degenerative arthrosis of the medial femorotibial compartment with moderate joint space narrowing. There is mild degenerative arthrosis of the lateral femorotibial compartment. There is mild degenerative arthrosis of the patellofemoral articulation. The soft tissue structures are unremarkable. RAD/Knee 4 or More Views IMPRESSION: Degenerative arthrosis. Electronically Signed: Socrates Lagunas MD at 11:21 EDT , Service support ,
== END ==
LOC: HPRAD 10:55
PROVIDERS: PCP Internal Medicine; Referring Provider Internal Medicine; Visit Provider Internal Medicine
DX: M25.561 Pain in right knee (principal)
CPT/HCPCS: 73564

== ENCOUNTER → 2020-02-29 09:45 | Outpatient (CLI) | payer MEDICARE, SELFPAY ==
[2019-08-16 11:31] VITALS: BMI 35.5
[2020-02-27 10:49] VITALS: BMI 36.6
--- NOTE | 2020-02-29 09:48 | BI_ITS ---
MAMMOGRAPHY - BILATERAL SCREENING REASON FOR EXAM: Female, 79 years old. Routine annual screening examination. PERTINENT HISTORY: Non-contributory. History of prior left stereotactic breast biopsy and left excisional breast biopsy. TECHNIQUE: Digital bilateral breast drew (3D mammographic acquisition) in the CC and MLO projections. 2-D mediolateral oblique (MLO) and craniocaudad (CC) views of both breasts were obtained. CAD: Full Field Digital Mammography with Computer Added Detection was performed. COMPARISON: Comparison is made with prior study dated 02/09/2019 and 02/07/2018. FINDINGS: Breast Composition: There are scattered areas of fibroglandular density. There are no dominant masses or suspicious calcifications. Stable small benign appearing bilateral axillary lymph nodes. Stable 3.4 mm well-defined nodule in the deep upper lateral portion of the right breast. This most likely represents a small lymph node. No other significant abnormalities are identified. There has been no significant change since the prior study. BI/SCREEN MAMM (CAD) W/DREW BILAT IMPRESSION: Stable bilateral screening mammogram. Yearly follow-up mammogram recommended. (A) ASSESSMENT CATEGORY: BIRADS Category 2: Benign. A letter regarding these results will be sent to the patient by the facility within 30 days. Approximately 10% of breast cancers are not detected by mammography. A normal mammogram should not delay biopsy of a clinically suspicious abnormality. [id number] Electronically Signed: Boy Barone, at 10:48 EDT , Service support ,
== END ==
PROVIDERS: PCP Internal Medicine; Referring Provider Internal Medicine; Visit Provider Internal Medicine
DX: Z12.31 Encounter for screening mammogram for malignant neoplasm of breast (principal)
CPT/HCPCS: 77063; 77067

== ENCOUNTER → 2020-08-26 11:58 | Outpatient (CLI) | payer MEDICARE, SELFPAY ==
[2020-02-27 10:49] VITALS: BMI 36.6
== END ==
LOC: PSN 11:59
PROVIDERS: PCP Internal Medicine; Referring Provider Internal Medicine; Visit Provider Internal Medicine
DX: I49.9 Cardiac arrhythmia, unspecified (principal)
CPT/HCPCS: 93225; 93226

== ENCOUNTER → 2020-08-27 12:46 | Outpatient (CLI) | payer MEDICARE, SELFPAY ==
[2020-02-27 10:49] VITALS: BMI 36.6
--- NOTE | 2020-08-27 12:48 | ECHOCS_ITS ---
Reason For Study: Arrhythmia Procedure This was a 2D Doppler, Color Flow transthoracic echocardiogram. The study was technically difficult. Contrast injection was performed. Exam performed in department. Left Ventricle Normal LV size. Left ventricular systolic function is normal. The estimated ejection fraction is 65 %. Stage 2 diastolic dysfunction. No regional wall motion abnormalities noted. Right Ventricle Normal RV size. Normal systolic function. Atria Normal left atrium. Normal right atrium. Mitral Valve Normal mitral valve. Tricuspid Valve Normal tricuspid valve. Mild (1+) tricuspid valve insufficiency. Pulmonary artery systolic pressure is 40 mmHg. Aortic Valve Trisinus/trileaflet aortic valve. Pulmonic Valve Normal pulmonic valve. Great Vessels Normal aortic root. The pulmonary artery is normal size. Normal inferior vena cava. Pericardium/Pleural No pericardial effusion. Medication 22 gauge I.V. with prn adaptor inserted into right arm. Diluted definity 3ml given slow IV push to enhance endocardial definition. MMode/2D Measurements & Calculations LVIDd: 4.9 cm IVSd: 0.87 cm Ao root diam: 3.3 cm LVIDs: 3.2 cm LVPWd: 0.75 cm LA dimension: 3.6 cm FS: 34.5 % LAV(MOD-bp): 70.1 ml LA A4 area: 21.0 cm2 RA A4 area: 12.2 cm2 LAV(MOD-bp) Indexed: 37.2 ml/m2 LAV(MOD-sp2): 77.5 ml LAV(MOD-sp4): 56.7 ml Time Measurements MV dec time: 0.25 sec Doppler Measurements & Calculations MV E max robin: 99.7 cm/sec Lat Peak E' Robin: 10.1 cm/sec Med Peak E' Robin: 10.5 cm/sec MV A max robin: 77.7 cm/sec E/E' lat: 9.8 E/E' med: 9.5 MV E/A: 1.3 MV V2 max: 107.9 cm/sec MV P1/2t max robin: 108.8 cm/sec Ao V2 max: 140.6 cm/sec MV max P.7 mmHg MV P1/2t: 90.3 msec Ao max P.9 mmHg MV V2 mean: 69.5 cm/sec MV dec slope: 353.0 cm/sec2 MV mean P.1 mmHg MV V2 VTI: 34.1 cm MVA(P1/2t): 2.4 cm2 LV V1 max: 126.8 cm/sec MR max robin: 537.7 cm/sec PA V2 max: 107.9 cm/sec LV V1 max P.4 mmHg MR max P.7 mmHg TR max robin: 299.1 cm/sec TR max P.8 mmHg Interpretation Summary Normal LV size. Left ventricular systolic function is normal. The estimated ejection fraction is 65 %. Stage 2 diastolic dysfunction. Pulmonary artery systolic pressure is 40 mmHg. Contrast injection was performed. Ordering Physician: Zoey De La Fuente Referring Physician: Zoey De La Fuente Performed By: Corona Johnson RCS
== END ==
LOC: CVS 12:47
PROVIDERS: PCP Internal Medicine; Referring Provider Internal Medicine; Visit Provider Internal Medicine
DX: I49.9 Cardiac arrhythmia, unspecified (principal); R94.31 Abnormal electrocardiogram [ECG] [EKG]
CPT/HCPCS: 93306; Q9957; A4216; C8929

== ENCOUNTER → 2022-04-02 | Outpatient (CLI) | payer MEDICARE, SELFPAY ==
--- NOTE | 2022-04-02 13:17 | BI_ITS ---
MAMMOGRAPHY - BILATERAL SCREENING REASON FOR EXAM: Female, 81 years old. Routine annual screening examination. PERTINENT HISTORY: Non-contributory. History of prior left stereotactic and excisional breast biopsies. TECHNIQUE: Digital bilateral breast drew (3D mammographic acquisition) in the CC and MLO projections. 2-D mediolateral oblique (MLO) and craniocaudad (CC) views of both breasts were obtained. CAD: Full Field Digital Mammography with Computer Added Detection was performed. COMPARISON: Comparison is made with prior study 02/29/2020 and 02/09/2019. FINDINGS: Breast Composition: There are scattered areas of fibroglandular density. There are no dominant masses or suspicious calcifications. Stable 3.4 mm well-defined nodule in the deep upper lateral portion of the right breast. Stable small benign-appearing bilateral axillary lymph nodes. No other significant abnormalities are identified. There has been no significant change since the prior study. BI/SCRN MAMM (CAD)W/DREW BILAT IMPRESSION: Stable bilateral screening mammogram. Yearly follow-up mammogram recommended. (A) ASSESSMENT CATEGORY: BIRADS Category 2: Benign. A letter regarding these results will be sent to the patient by the facility within 30 days. Approximately 10% of breast cancers are not detected by mammography. A normal mammogram should not delay biopsy of a clinically suspicious abnormality. [id number] Electronically Signed: Boy Barone MD at 14:15 EDT ,
--- NOTE | 2022-04-02 13:23 | BD_ITS ---
STUDY: DUAL ENERGY X-RAY ABSORPTIOMETRY / DXA REASON FOR EXAM: Female, 81 years old. [id number] TECHNIQUE: Bone Mineral Density (BMD) measurements of lumbar spine and bilateral hips were obtained. COMPARISON: Comparison is made with prior examination dated 02/09/2019. FINDINGS: Lumbar Spine (L1-L4): g/cm2 (0.983) / T-score (-0.7) / Z-score (2.2) Findings are suggestive of normal bone density with a low fracture risk. Left Femur Total: g/cm2 (0.840) / T-score (-0.8) / Z-score (1.4) Left Femoral Neck: g/cm2 (0.738) / T-score (-1.0) / Z-score (1.5) Right Femur Total: g/cm2 (0.827) / T-score (-0.9) / Z-score (1.3) Right Femoral Neck: g/cm2 (0.710) / T-score (-1.2) / Z-score (1.2) The T-Scores on the most recent prior examination were: Lumbar Spine (L1-L4): There has been improvement of bone density since the previous examination. Left Femur Total: which represents a worsening of 6.6%. Right Femur Total: which represents a worsening of 10.4%. BD/Dexa Bone Density Study IMPRESSION: The patient is considered osteopenic as outlined below according to World Naresh Organization (WHO) criteria with a low fracture risk. There has been worsening of bone density since the previous examination. Reference Information: The T-score is the number of standard deviations above or below the standard which is normal for young adults at their peak bone mineral density. The World Health Organization (WHO) interprets the T-scores as follows: Above -1 Normal bone density Between -1 and -2.5 Osteopenia Equal to / or below -2.5 Osteoporosis As a practical clinical guideline, osteopenia may be graded as follows: Mild -1 through -1.5 Moderate -1.6 through -2.0 Severe -2.1 through -2.4 The Z-score is the number of standard deviations above or below age-matched controls. A Z-score of less than -1.5 would be considered abnormal. References: 1. NIH Osteoporosis and Related Bone Diseases www osteo.org 2. International Society for Clinical Densitometry www iscd.org 3. National Osteoporosis Foundation www nof.org Electronically Signed: Boy Barone MD at 13:56 EDT ,
== END | disposition home or self-care (01) ==
LOC: OPBD 13:16
PROVIDERS: PCP Internal Medicine; Visit Provider Internal Medicine
DX: Z12.31 Encounter for screening mammogram for malignant neoplasm of breast (principal); Z78.0 Asymptomatic menopausal state
CPT/HCPCS: 77063; 77067; 77080

== ENCOUNTER → 2022-10-22 | Outpatient (CLI) | payer MEDICARE, SELFPAY ==
--- NOTE | 2022-10-22 17:26 | STRESSREP ---
Stress Test Report Pharmacologic myocardial perfusion stress test. 82-year-old lady with a history of coronary artery disease Resting EKG demonstrates sinus rhythm with a rate of 63 bpm. Resting blood pressure is 120/62 mmHg. 0.4 mg of regadenoson was infused per usual protocol followed by rapid intravenous saline flush injection. Continuous EKG monitoring was performed. The maximum heart rate was 88 bpm which was 64% of max impacted heart rate the maximum workload was 1 metabolic equivalent. At rest there were no ST or T wave changes noted to suggest ischemia and at peak infusion nonspecific ST changes were noted which did not meet the criteria for ischemia. No clinical angina is noted. The final blood pressure was 118/68 mmHg. Myocardial perfusion protocol. 11.9 mCi of technetium 99m sestamibi was injected at rest. 0.4 mg of regadenoson was infused per usual protocol. At peak infusion 34.3 mCi of technetium 99m sestamibi was injected stress images were obtained stress and rest images were reconstructed and compared in the short axis vertical long and horizontal long axis. Gated images were also obtained. Perfusion SPECT analysis: Review of the stress images demonstrate normal uptake of tracer noted in all areas of the myocardium. The resting images similar demonstrated normal uptake of tracer noted in all areas of the myocardium. No areas of reversibility are noted to suggest ischemia and no previous infarct is noted. Gated SPECT analysis: The gated ejection fraction is 82%. Conclusion: Normal pharmacologic myocardial perfusion stress test. Preserved ejection fraction.
== END | disposition home or self-care (01) ==
LOC: CVS 07:06
PROVIDERS: PCP Internal Medicine; Referring Provider Internal Medicine; Visit Provider Internal Medicine
DX: I25.10 Atherosclerotic heart disease of native coronary artery without angina pectoris (principal)
CPT/HCPCS: 78452; 93017; A9500; A4216; J2785

== ENCOUNTER → 2023-01-13 | Outpatient (CLI) | payer MEDICARE, SELFPAY ==
--- NOTE | 2023-01-13 09:28 | NM_ITS ---
CLINICAL: 82-year-old female with history of elevation of the serum alkaline phosphatase level. WHOLE BODY 99m Tc MDP RADIONUCLIDE BONE SCINTIGRAPHY COMPARISON: None available FINDINGS: Following the intravenous administration of 26.5 mCi of 99m Tc MDP, whole body bone images reveal: 1. Increased radiopharmaceutical concentration is defined in the bilateral wrists and hands, the sternoclavicular compartment of the left shoulder, acromioclavicular compartment of the left shoulder, the glenohumeral compartment of the right shoulder, the knee articulations bilaterally, the mid cervical spine posteriorly on the left and right, several thoracic vertebra, the fifth lumbar vertebra posteriorly on the left and right. 2. The remaining skeletal structures are scintigraphically unremarkable with normal-appearing renal images and urinary bladder activity identified. NM/Bone Scan Whole Body IMPRESSION: 1. The increase in tracer distribution defined in the bilateral shoulders, right and left wrists and hands, both knee articulations, the cervical, thoracic and lumbar spine is most consistent with degenerative arthrosis. 2. There is no definitive scintigraphic evidence of diffuse axial skeletal metastatic or metabolic disease on the current examination. Electronically Signed: Chalo Romero, at 9:42 EDT ,
== END | disposition home or self-care (01) ==
LOC: NM 09:23
PROVIDERS: PCP Internal Medicine; Referring Provider Internal Medicine; Visit Provider Internal Medicine
DX: R74.8 Abnormal levels of other serum enzymes (principal)
CPT/HCPCS: 78306; A9503

== ENCOUNTER → 2023-05-07 | Outpatient (CLI) | payer MEDICARE, SELFPAY ==
--- NOTE | 2023-05-07 10:21 | BI_ITS ---
MAMMOGRAPHY - BILATERAL SCREENING REASON FOR EXAM: Female, 82 years old. Routine annual screening examination. PERTINENT HISTORY: Non-contributory. History of remote left excisional breast biopsy. TECHNIQUE: Digital bilateral breast drew (3D mammographic acquisition) in the CC and MLO projections. 2-D mediolateral oblique (MLO) and craniocaudad (CC) views of both breasts were obtained. CAD: Full Field Digital Mammography with Computer Added Detection was performed. COMPARISON: Comparison is made with prior study April 02, 2022 and February 29, 2020. FINDINGS: Breast Composition: There are scattered areas of fibroglandular density. There are no dominant masses or suspicious calcifications. Stable 3.4 mm well-defined nodule in the deep upper lateral portion of the right breast. This is suggestive of a small left. Stable small benign-appearing bilateral axillary lymph nodes. No other significant abnormalities are identified. There has been no significant change since the prior study. BI/SCRN MAMM (CAD)W/DREW BILAT IMPRESSION: Stable bilateral screening mammogram. Yearly follow-up mammogram recommended. (A) ASSESSMENT CATEGORY: BIRADS Category 2: Benign. A letter regarding these results will be sent to the patient by the facility within 30 days. Approximately 10% of breast cancers are not detected by mammography. A normal mammogram should not delay biopsy of a clinically suspicious abnormality. [id number] Electronically Signed: Boy Barone MD at 12:01 EST ,
== END | disposition home or self-care (01) ==
PROVIDERS: PCP Internal Medicine; Referring Provider Internal Medicine; Visit Provider Internal Medicine
DX: Z12.31 Encounter for screening mammogram for malignant neoplasm of breast (principal)
CPT/HCPCS: 77063; 77067

== ENCOUNTER → 2023-09-15 | Outpatient (CLI) | payer MEDICARE, SELFPAY ==
--- NOTE | 2023-09-15 14:49 | VDLE_ITS ---
Reason For Study: Right leg pain RIGHT LEFT GSV is normal. CFV is compressible, spontaneous, phasic, CFV is compressible, spontaneous, phasic, competent, and demonstrates normal competent and demonstrates normal augmentation. augmentation. FV is compressible, spontaneous, phasic, competent and demonstrates normal augmentation. POP V is compressible, spontaneous, phasic, competent and demonstrates normal augmentation. T/P Trunk is compressible. PTV is compressible. RT PerV is compressible. Nonvascularized structure noted in the right popliteal fossa that measures 1.18 x 4.49 cm. Procedure This is a venous duplex using B-mode, color flow and spectral Doppler. Exam performed in department. A preliminary report was called and/or faxed to Dr. De La Fuente. VL/Venous Duplex US, Unilateral Interpretation Summary Deep veins of the right lower extremity are patent and compressible segmentally . There is no evidence of right lower extremity deep vein thrombosis. Valvular competence joseph ears intact within the proximal deep venous system on the right . The right great saphenous vein a ppears patent and compressible segmentally. The left common femoral vein is patent and compressib le . A non-vascular, hypoechoic structure is noted in the right popliteal space, measuring 1.18 cm x 4.49 cm. This probably represents a popliteal cyst. Clinical correlation is advised. Ordering Physician: Zoey De La Fuente Referring Physician: Zoey De La Fuente Performed By: Rosario Figueroa RVT
== END | disposition home or self-care (01) ==
LOC: CVS 14:48
PROVIDERS: PCP Internal Medicine; Referring Provider Internal Medicine; Visit Provider Internal Medicine
DX: M79.661 Pain in right lower leg (principal)
CPT/HCPCS: 93971

== ENCOUNTER → 2024-05-25 | Outpatient (CLI) | payer MEDICARE, SELFPAY ==
--- NOTE | 2024-05-25 10:22 | BI_ITS ---
MAMMOGRAPHY - BILATERAL SCREENING REASON FOR EXAM: Female, 84 years old. Routine annual screening examination. PERTINENT HISTORY: Non-contributory. History of prior left stereotactic breast biopsy and left excisional breast biopsy. TECHNIQUE: Digital bilateral breast drew (3D mammographic acquisition) in the CC and MLO projections. 2-D mediolateral oblique (MLO) and craniocaudad (CC) views of both breasts were obtained. CAD: Full Field Digital Mammography with Computer Added Detection was performed. COMPARISON: Comparison is made with prior study dated May 07, 2023 and April 02, 2022. FINDINGS: Breast Composition: There are scattered areas of fibroglandular density. There are no dominant masses or suspicious calcifications. Stable small bilateral axillary lymph nodes. No other significant abnormalities are identified. There has been no significant change since the prior study. BI/SCRN MAMM (CAD)W/DREW BILAT IMPRESSION: Stable bilateral screening mammogram. Yearly follow-up mammogram recommended. (A) ASSESSMENT CATEGORY: BIRADS Category 2: Benign. A letter regarding these results will be sent to the patient by the facility within 30 days. Approximately 10% of breast cancers are not detected by mammography. A normal mammogram should not delay biopsy of a clinically suspicious abnormality. [id number] Electronically Signed: Boy Barone MD at 11:13 EST ,
--- NOTE | 2024-05-25 10:27 | BD_ITS ---
STUDY: DUAL ENERGY X-RAY ABSORPTIOMETRY / DXA REASON FOR EXAM: Female, 84 years old. [id number] TECHNIQUE: Bone Mineral Density (BMD) measurements of lumbar spine and bilateral hips were obtained. COMPARISON: Comparison is made with prior study April 02, 2022. FINDINGS: Lumbar Spine (L1-L4): g/cm2 (0.982) / T-score (-0.3) / Z-score (2.5) Findings are suggestive of normal bone density with a low fracture risk. Left Femur Total: g/cm2 (0.779) / T-score (-1.3) / Z-score (1.0) Left Femoral Neck: g/cm2 (0.734) / T-score (-1.0) / Z-score (1.5) Right Femur Total: g/cm2 (0.783) / T-score (-1.3) / Z-score (1.0) Right Femoral Neck: g/cm2 (0.676) / T-score (-1.6) / Z-score (1.0) The T-Scores on the most recent prior examination were: Lumbar Spine (L1-L4): There has been improvement of bone density since the previous examination. Left Femur Total: which represents a worsening of 7.2%. Right Femur Total: which represents a worsening of 5.4%. BD/Dexa Bone Density Study IMPRESSION: The patient is considered osteopenic as outlined below according to World Na[employer] Organization (WHO) criteria with a moderate fracture risk. There has been worsening of bone density since the previous examination. Reference Information: The T-score is the number of standard deviations above or below the standard which is normal for young adults at their peak bone mineral density. The World Health Organization (WHO) interprets the T-scores as follows: Above -1 Normal bone density Between -1 and -2.5 Osteopenia Equal to / or below -2.5 Osteoporosis As a practical clinical guideline, osteopenia may be graded as follows: Mild -1 through -1.5 Moderate -1.6 through -2.0 Severe -2.1 through -2.4 The Z-score is the number of standard deviations above or below age-matched controls. A Z-score of less than -1.5 would be considered abnormal. References: 1. NIH Osteoporosis and Related Bone Diseases www osteo.org 2. International Society for Clinical Densitometry www iscd.org 3. National Osteoporosis Foundation www nof.org Electronically Signed: Boy Barone MD at 12:41 EST ,
== END | disposition home or self-care (01) ==
LOC: OPBD 10:20
PROVIDERS: PCP Internal Medicine; Referring Provider Internal Medicine; Visit Provider Internal Medicine
DX: Z13.820 Encounter for screening for osteoporosis (principal); Z78.0 Asymptomatic menopausal state; Z12.31 Encounter for screening mammogram for malignant neoplasm of breast
CPT/HCPCS: 77063; 77067; 77080

== ENCOUNTER → 2025-04-27 | Outpatient (CLI) | payer MEDICARE, SELFPAY ==
[2025-04-27 14:59] LABS: Hematocrit 41.4 % (37-47); Hemoglobin 13.7 g/dL (12.0-15.0); Immature Granulocytes Count 0.000 X10^3/uL (0.0-0.0); Mean Corp Hgb Conc 33.1 g/dL (32-36); Mean Corpuscular Volume 86.6 fL (81-99); Mean Platelet Vol. 8.1 fl (6.2-12.0); NRBC Flagged by Analyzer 0 % (0-5); Platelet Count 237 K/mm3 (150-450); RBC Distribution Width CV 12.8 % (11.6-14.6); RBC Distribution Width SD 40.3 fl (35.1-43.9); Red Blood Count 4.78 M/mm3 (4.2-5.4); White Blood Count 4.3 K/mm3 (4.4-11.0)
[2025-04-27 15:24] LABS: Creatinine, Urine (random) 115.00 mg/dL (28.00-217.00); Microalbumin,Random Urine 15.8 mg/L (<20 mg/L)
[2025-04-27 15:50] LABS: FOLATES,SERUM (FOLIC ACID) 13.90 ng/mL (4.60-34.80)
[2025-04-27 16:03] LABS: AST(SGOT) 22 U/L (<=31); Alanine Aminotransfer ALT/SGPT 12 U/L (<=34); Albumin, Serum 4.5 g/dL (3.4-4.8); Alkaline Phosphatase 125 U/L (35-104); Anion Gap 12 (5-15); BUN 23 mg/dL (4-19); BUN/Creat Ratio 35.6 RATIO (10-20); Calcium,Total 9.6 mg/dL (7.6-11.0); Carbon Dioxide 24.7 mmol/L (21.0-32.0); Chloride 103 mmol/L (98-108); Cholesterol 183 mg/dL (<=200); Globulin 2.9 g/dL (2.2-4.2); Glucose 99 mg/dL (70-99); Low Density Lipoprotein Calc. 91 mg/dL; Potassium 4.3 mmol/L (3.3-5.1); Triglycerides 80 mg/dL; Very Low Density Lipoprotein 16 mg/dL (5-40); Vitamin B12 706 pg/mL (180-914); Vitamin D,25 Hydroxy 88.7 ng/mL (30-100); cholesterol:hdl ratio screen 2.36
== END | disposition home or self-care (01) ==
LOC: CIMLAB 13:45
PROVIDERS: PCP Internal Medicine; Referring Provider Internal Medicine; Visit Provider Internal Medicine
DX: R73.01 Impaired fasting glucose (principal); E55.9 Vitamin D deficiency, unspecified; E53.8 Deficiency of other specified B group vitamins; E78.5 Hyperlipidemia, unspecified
CPT/HCPCS: 36415; 80053; 80061; 82043; 82306; 82570; 82607; 82746; 83036; 85025

== ENCOUNTER → 2025-05-28 | Outpatient (CLI) | payer MEDICARE, SELFPAY ==
--- NOTE | 2025-05-28 13:25 | BI_ITS ---
EXAM: SCRN MAMM (CAD)W/DREW BILAT DATE: 05/28/2025 CLINICAL HISTORY: F, Age 85 y/o , BILAT BRST SCREEN DREW ADD-ON TECHNIQUE: Procedure Code: [id number] Modality: MG Procedure: SCRN MAMM (CAD)W/DREW BILAT COMPARISON: Prior exam(s) dated 05/25/2024 and 05/07/2023. FINDINGS: TISSUE DENSITY: The breasts are almost entirely fatty. Bilateral Breast Mammographic Findings: No significant masses, calcifications or other abnormalities are identified. Benign vascular calcifications and round calcifications are seen in both breast. Well-circumscribed stable isodense masses are seen in both breasts. BI/SCRN MAMM (CAD)W/DREW BILAT IMPRESSION: Benign screening mammogram. OVERALL FINAL ASSESSMENT BI-RADS 2: BENIGN RECOMMENDATION: Routine annual follow-up in 1 Year Additional Recommendation none A letter with findings and recommendations will be mailed to the patient. Reading Location: [id number]
== END | disposition home or self-care (01) ==
LOC: OPBI 13:24
PROVIDERS: PCP Internal Medicine; Referring Provider Internal Medicine; Visit Provider Internal Medicine
DX: Z12.31 Encounter for screening mammogram for malignant neoplasm of breast (principal)
CPT/HCPCS: 77063; 77067